=== PATIENT | female | born 1980 | race Caucasian/White ===

== ENCOUNTER 2016-11-21 10:51 | Emergency (ER) | payer OTHER ==
--- NOTE | 2016-11-21 14:41 | DIAGNOSTIC IMAGING REPORT ---
PROCEDURE: CT ABD/PELVIS WITH CONTRAST CLINICAL INDICATION: ABDOMINAL PAIN, initial encounter TECHNIQUE: 75 ml of Isovue 300 were injected intravenously and axial images were obtained of the entire abdomen and pelvis with sagittal and coronal reformations. COMPARISON: None. FINDINGS: ABDOMEN: Lung bases are clear. Heart size is normal. Mild stranding around the uncinate process of the pancreas. Liver, spleen, adrenal glands and right kidney are normal. Partial left nephrectomy. Normal abdominal aorta. Nonspecific bowel gas pattern. PELVIS: Status post appendectomy. Bilateral ovarian cysts, largest on the right measures 2.3 cm. Uterus and bladder are unremarkable. No inflammatory process or free fluid. Mild to moderate degenerative changes of the spine. IMPRESSION: 1. Stranding around the uncinate process of the pancreas which may represent pancreatitis. Correlate with lipase 2. Partial left nephrectomy and appendectomy 3. Bilateral ovarian cysts 4. Results discussed with Dr. Wallace All CT scans at this facility use dose modulation, iterative reconstruction, and/or weight-based dosing when appropriate to reduce radiation dose to as low as reasonably achievable.
--- NOTE | 2016-11-21 16:06 | ED CLINICAL REPORT ---
Clinical Report - Physicians/Mid Levels [facility] [address] [place] [address] 11/21/2016 10:54 Patient: KURTIS GOMEZ Time Seen: 12:03 Nov 21 2016. Arrived- By private vehicle. Historian- patient. Note: (Kidney cancer 2011.). CPT: ER phys charges level 4 (#[id number]). HISTORY OF PRESENT ILLNESS Chief Complaint: Back, abdominal and pelvic pain. ( Arrived by private vehicle. Historian: patient. Primary physician (Dr. Myers). ( Pt states been having lower back right and left side pain for the past two weeks, suspected that is her "kidney again" Pt states having had CA on left kidney back in 2011 had surgery for it. Complaints of n/v chills (lower pain) 10/10, here for evaluation). Describes the quality as sharp. Relates location as in the right and left side of the back and pelvic area. Notes pain level as 10/10 on arrival. ( Pt stats started 2 weeks ago, has an appt with urologist this coming Friday). She has had fever, nausea, abdominal pain and pain and nausea. She has had vomiting and diarrhea. She has had vomiting (yesterday). The vomiting has occurred several times. She has had diarrhea (yesterday). This has occurred twice. No difficulty with urination. No bloody stools or vaginal bleeding or discharge. Last oral intake by patient was breakfast this morning. No radiation.). At its maximum, severity described as moderate. When seen in the E.D., severity described as moderate. Modifying factors- worsened by movement. Relieved by rest. Is still present. The patient has had fatigue. Similar symptoms previously: None. Recent medical care: Not recently seen/assessed. REVIEW OF SYSTEMS No fever, sore throat, sinus drainage, cough or difficulty breathing. No chest pain, nausea, vomiting, diarrhea or black stools. No bloody stools, chills, difficulty with urination, abnormal bleeding or skin rash. No calf pain, headache or blackouts. The patient has had abdominal pain and back pain. Not as she has obstained for months. All systems otherwise negative, except as recorded above. PAST HISTORY Migraine Headache. Cancer. Back pain ADDITIONAL SURGERIES: Appendectomy. Partial kidney removed (Left). SOCIAL HISTORY Smoker- current status unknown (vapor). Occasional alcohol use. ADDITIONAL NOTES The nursing notes have been reviewed. PHYSICAL EXAM Vital Signs: 11/21/2016 11:13 BP: 121/64. HR: 86. RR: 15. O2 saturation: 98%. Temp: 98 F. Pain level now: 08/05. Appearance: Alert. Patient in mild distress. Eyes: Pupils equal, round and reactive to light. Eyes normal inspection. ENT: Ears normal. Nose normal. Pharynx normal. Neck: Normal inspection. Neck supple. CVS: Normal heart rate and rhythm. Heart sounds normal. Pulses normal. Respiratory: No respiratory distress. Breath sounds normal. Chest nontender. Abdomen: Soft. Mild tenderness in the right and left side of the abdomen and suprapubic area. Bowel sounds normal. No mass. Back: Normal inspection. No CVA tenderness. Skin: Skin warm. Normal skin color. No rash. Extremities: Extremities exhibit normal ROM. No lower extremity edema. Neuro: Oriented X 3. No motor deficit. No sensory deficit. LABS, X-RAYS, AND EKG Abdominal CT: Normal liver, spleen, pancreas and kidneys. An ovarian cyst is present. Bladder normal. Appendix normal. No mass. No free fluid. No bony lesion. No diverticulitis. prior nephrectomy noted. Abdominal CT performed with IV contrast. The study was independently viewed by me, interpreted by the radiologist and discussed with the radiologist. Laboratory Tests: UA-Culture if indicated: (ALEXEY: 11/21/2016 11:15) ( MsgRcvd 11/21/2016 12:38) Final results Test Result Flag Units (Reference) URINE COLOR YELLOW URINE APPEARANCE CLEAR URINE GLUCOSE NEGATIVE (NEGATIVE) URINE BILIRUBIN NEGATIVE (NEGATIVE) URINE KETONE NEGATIVE (NEGATIVE) URINE SPECIFIC GRAVITY <= 1.005 L (1.010-1.030) URINE PH 6.0 (5.0-8.0) URINE PROTEIN NEGATIVE (NEGATIVE) URINE UROBILINOGEN 0.2 EU/dL (0.2-1.0) URINE NITRITE NEGATIVE (NEGATIVE) URINE BLOOD NEGATIVE (NEGATIVE) URINE LEUK ESTERASE NEGATIVE (NEGATIVE) URINE RBC NONE SEEN rbc/hpf (0-1) URINE WBC 0-1 wbc/hpf (0-1) URINE EPITHELIAL CELLS 0-1 EPI/hpf (0-5) URINE BACTERIA TRACE (<1+) (NONE SEEN) URINE COMMENT CULT NOT INDICATED URINE CULTURES ARE SET-UP BASED ON THE FOLLOWING CRITERIA:POSITIVE NITRITEPOSITIVE LEUKOCYTE ESTERASEGREATER THAN 10 WHITE BLOOD CELLSMODERATE (2+) OR GREATER BACTERIA CBC w Diff: (ALEXEY: 11/21/2016 12:55) ( [facility] [place] 11/21/2016 13:02) Final results Test Result Flag Units (Reference) WHITE BLOOD COUNT 7.1 K/uL (4.5-11.5) RED BLOOD COUNT 4.78 M/uL (4.00-5.20) HEMOGLOBIN 11.9 L gm/dL (12.0-16.0) HEMATOCRIT 36.5 % (36.0-46.0) MEAN CELL VOLUME 76 L fL (80-100) MEAN CORPUSCULAR HGB 25 L pg (26-34) MEAN CORPUSCULAR HGB CONC 33 g/dL (31-37) RED CELL DISTRIBUTION WIDTH 15.3 H % (11.6-14.8) PLATELET COUNT 281 K/uL (150-400) NEUTROPHIL % 72.5 % (50-75) LYMPH % 19.5 L % (25-40) MONO % 6.8 % (3-14) EOSINOPHIL % 0.8 % (0-4) BASOPHIL % 0.4 % (0-2) CMP: (ALEXEY: 11/21/2016 12:55) ( [facility] [place] 11/21/2016 13:31) Final results Test Result Flag Units (Reference) GLUCOSE 92 mg/dL (70-110) BUN 11 mg/dL (7-18) CREATININE 0.6 mg/dL (0.6-1.3) Estimated GFR >60 mL/min Estimated GFR- >60 mL/min Note: Persistent reduction over 3 months in eGFR<60 mL/min/1.73 m2 defines CKD. Patients with eGFR values>=60 mL/min/1.73 m2 may also have CKD if evidence ofpersistent proteinuria. Additional information may be foundat [email or web address].org. SODIUM 141 mmol/L (136-145) POTASSIUM 3.7 mmol/L (3.5-5.1) CHLORIDE 105 mmol/L (98-107) CARBON DIOXIDE 26 mmol/L (21-32) CALCIUM 8.7 mg/dL (8.5-10.1) TOTAL PROTEIN 7.1 g/dL (6.4-8.2) ALBUMIN 3.7 g/dL (3.3-5.0) BILIRUBIN, TOTAL 0.5 mg/dL (0.0-1.0) ALKALINE PHOSPHATASE 69 U/L (46-116) AST (SGOT) 15 U/L (15-37) ALT (SGPT) 25 U/L (12-78) LIPASE 99 U/L (73-393) AMYLASE 33 U/L (25-115) . PROGRESS AND PROCEDURES Course of Care: Pt has not had a follow up CT for cancer in atleast 2 years according to patient. 15:45 11/21/16. No laboratory or x-ray evidence of emergent condition. Patient will be referred to her PCP for further workup. She does have an ovarian cyst on CAT scan and may have pain and that's radicular from her back. She does have prior history of back pain. Patient/family counseled. Disposition: Discharged. Condition: stable. CLINICAL IMPRESSION Back pain Abdominal pain Ovarian cyst on the right. Vomiting. INSTRUCTIONS Prescription Medications: Hydrocodone/APAP 5mg/325mg: take 1 to 2 orally every 6 hours as needed for pain. Dispense fifteen (15). No refills. Zofran (orally disintegrating tablets) 4 mg: take 1 orally every 6 hours as needed for nausea. Dispense ten (10). Substitution is permissible. OTC Medications: Motrin (available over the counter): take according to label instructions. Follow-up: Follow up with your doctor in one week. Call for an appointment. Understanding of the discharge instructions verbalized by patient. (Electronically signed by Jeffry Wallace MD 11/25/2016 0:56)
--- NOTE | 2016-11-21 16:06 | ED NURSING NOTES ---
Clinical Report - [facility] [address] [place] [address] 11/21/2016 10:54 Patient: KURTIS GOMEZ TRIAGE Triage time 1115 AM. Acuity: LEVEL 3. Chief Complaint: ABDOMINAL PAIN. Alert. No acute distress. BRAYDON COMA SCORE: Novinger Coma Scale: 15- eyes open spontaneously (4); best verbal response- oriented x 4 (5); best motor response- obeys commands (6). --11:29 Kaitlin Buchanan R.N. 11:13 11/21/16. BP: 121/64. HR: 86. RR: 15. O2 saturation: 98% on room air. Temp: 98 F (oral). Pain level now: 10/10. --11:29 Kaitlin Buchanan R.N. Weight: 121.1 kg stated. Height/Length: 64 inches Per Patient. BMI: 45.9. --11:17 Kaitlin Buchanan R.N. Medications None. --11:28 Kaitlin Buchanan R.N. Allergies Wellbutrin. --11:28 Kaitlin Buchanan R.N. Latex. --11:28 Kaitlin Buchanan R.N. Medication/allergy information source: the patient. --11:29 Kaitlin Buchanan R.N. History Arrived by private vehicle. Historian: patient. Primary physician (Dr. Myers). ( Pt states been having lower back right and left side pain for the past two weeks, suspected that is her "kidney again" Pt states having had CA on left kidney back in 2012 had surgery for it. Complaints of n/v chills (lower pain) 10/10, here for evaluation). Describes the quality as sharp. Relates location as in the right and left side of the back and pelvic area. Notes pain level as 10/10 on arrival. ( Pt stats started 2 weeks ago, has an appt with urologist this coming Friday). She has had fever, nausea, abdominal pain and pain and nausea. She has had vomiting and diarrhea. She has had vomiting (yesterday). The vomiting has occurred several times. She has had diarrhea (yesterday). This has occurred twice. No difficulty with urination. No bloody stools or vaginal bleeding or discharge. Last oral intake by patient was breakfast this morning. No radiation. Treatment JTAC: Took ibuprofen. (around 10 am). PAST MEDICAL HX: Immunizations: up-to-date. Last normal menstrual period- Oct 31. No contraception. Not sexually active. SOCIAL HX: Light tobacco smoker (electronic cigarrettes). Occasional alcohol use. No recent travel. She has had contact with a sick coworker with confirmed "flu". No infectious disease exposure. ABUSE ASSESSMENT: No report of abuse. SELF HARM ASSESSMENT: A self harm assessment was performed. The patient answered "no" to the question "Do you have thoughts of harming or killing yourself?" and "Have you recently had thoughts about harming or killing others?". FALL RISK ASSESSMENT: Fall risk assessment completed. No fall risk identified. NUTRITIONAL RISK ASSESSMENT: The nutritional risk assessment revealed no deficiencies. FUNCTIONAL ASSESSMENT: Functional assessment: no impairments noted. LEARNING NEEDS ASSESSMENT: The learning needs assessment revealed no barriers. SKIN INTEGRITY ASSESSMENT: Skin integrity risk assessment completed. No skin integrity risk identified. --11:29 Kaitlin Buchanan R.N. PROBLEMS: Migraine Headache. Cancer. --11:29 Kaitlin Buchanan R.N. ADDITIONAL SURGERIES: Appendectomy. Partial kidney removed (Left). --11:29 Kaitlin Buchanan R.N. Interventions ID band on patient. --11:29 Kaitlin Buchanan R.N. PHYSICAL ASSESSMENT GENERAL / NEURO / PSYCH: Alert. Oriented X 4. Appears in no acute distress. Appears in pain. HEENT: Mucous membranes are pink. RESPIRATORY: Respirations not labored. Breath sounds within normal limits. CVS: Capillary refill less than 2 seconds. GI / : Obesity. Abdomen soft. Bowel sounds within normal limits. SKIN: Skin is warm and dry. --11:31 Kaitlin Buchanan R.N. NURSING PROGRESS NOTES The initial plan of care for this patient has been created This plan of care was discussed with the patient. Patient gowned. Warming measures: blanket applied. Reassurance given. Two patient identifiers checked. Call light placed in reach. Side rails up x 1. Bed placed in lowest position. Brakes of bed on. Brakes of chair on. --11:32 Kaitlin Buchanan R.N. 12:28 11/21/2016 Site #1 started via IV in the left antecubital space with an 20g angiocath; one attempt. --12:28 Kaitlin Buchanan R.N. Reassurance given. Patient ID band checked for patient name, birthdate and medical record number: patient confirmed. Instructions provided to collect clean catch urine and patient verbalized understanding. Clean catch urine collected with return of yellow-colored clear urine; sample sent to lab for urinalysis. Specimen labeled in the presence of the patient. Patient identifiers checked. Call light placed in reach. Side rails up x 1. Brakes of bed on. Brakes of chair on. --12:28 Kaitlin Buchanan R.N. 12:57 11/21/2016 Started bag #1 1000 mL IV Fluids IV NS (Saline); bolus of 250 mL over 30 minute(s) via site #1 via dial-a-flow. Allergies verified and confirmed 5 rights. IV patency established. IV site checked: no pain, redness, or swelling. IV flushed thoroughly pre- and post-medication administration. --12:57 Kaitlin Buchanan R.N. 13:30 11/21/16. BP: 109/63 taken on the right arm, via an automated monitor, while lying. HR: 70. RR: 16. O2 saturation: 100% on room air. Temp: 98.4 F (oral). Pain level now: 08/05. --13:52 Kaitlin Buchanan R.N. Reassurance given. GI / : The patient reports nausea. The patient reports abdominal pain. The patient reports diarrhea. Two patient identifiers checked. Call light placed in reach. Side rails up x 1. Bed placed in lowest position. Brakes of bed on. Brakes of chair on. --13:52 Kaitlin Buchanan R.N. 14:01 11/21/2016 Zofran (Ondansetron HCl) IVP 4 mg given over 2 minute(s) via site #1. Allergies verified and confirmed 5 rights. IV patency established. IV site checked: no pain, redness, or swelling. IV flushed thoroughly pre- and post-medication administration. IVP given by RN. --14:03 Kaitlin Buchanan R.N. 14:03 11/21/2016 Dilaudid (HYDROmorphone HCl PF) IVP 0.5 mg given over 1 minute(s) via site #1. Allergies verified, confirmed 5 rights and sedative warning given to the patient. IV patency established. IV site checked: no pain, redness, or swelling. IV flushed thoroughly pre- and post-medication administration. IVP given by RN. --14:03 Kaitlin Buchanan R.N. Patient transported to CT by stretcher. --14:04 Kaitlin Buchanan R.N. 15:29 11/21/2016 Zofran IVP Response: no adverse reaction symptoms have improved. --15:29 Kaitlin Buchanan R.N. 15:38 11/21/16. BP: 119/88. HR: 72. RR: 16. O2 saturation: 100%. Temp: 98.7 F (oral). Pain level now: 06/05. --15:39 Kaitlin Buchanan R.N. Reassurance given. Reassessment after fluids administered and medication administered. She is calm and has had no adverse reaction. Overall patient status is the same- she states feels the same. GI / : The patient reports nausea. The patient reports abdominal pain. Two patient identifiers checked. Call light placed in reach. Side rails up x 2. Bed placed in lowest position. Brakes of bed on. Brakes of chair on. Patient waiting for CT results. --15:39 Kaitlin Buchanan R.N. 15:44 11/21/2016 Zofran (Ondansetron HCl) IVP 4 mg given over 2 minute(s) via site #1. Allergies verified and confirmed 5 rights. IV patency established. IV site checked: no pain, redness, or swelling. IV flushed thoroughly pre- and post-medication administration. IVP given by RN. --15:44 Kaitlin Buchanan R.N. 15:44 11/21/2016 Dilaudid IVP Response: no adverse reaction symptoms are the same. The patient feels the same. --15:44 Kaitlin Buchanan R.N. 16:35 11/21/2016 IV Fluids IV NS Discontinued: bag #1 infused upon discharge. Total amount infused: 1000 mL. IV patency established. IV site checked: no pain, redness, or swelling. IV flushed thoroughly. --16:50 Kaitlin Buchanan R.N. 16:39 11/21/2016 Zofran IVP Response: no adverse reaction. --16:49 Kaitlin Buchanan R.N. 16:48 11/21/2016 Site #1 removed upon discharge. Catheter intact. Manual pressure applied. --16:50 Kaitlin Buchanan R.N. DISPOSITION / DISCHARGE Departure time: 1650 PM. Condition at departure: improved and stable. The goals identified in the patient's plan of care were met. No learning barriers present. Reviewed medication(s) side effects, precautions, dosing and course information. Prescription(s) given to the patient. Reviewed need for increased fluid intake. Activity restrictions (rest) reviewed. Patient verbalized understanding. Written instructions provided in Indonesian. The patient was discharged by the physician. She was discharged home and accompanied by spouse. She left the Emergency Department ambulatory and via private vehicle. Spouse driving. FALL RISK ASSESSMENT: Fall risk assessment completed. No fall risk identified. BRAYDON COMA SCORE: Braydon Coma Scale: 15- eyes open spontaneously (4); best verbal response- oriented x 4 (5); best motor response- obeys commands (6). --16:52 Kaitlin Buchanan R.N. 16:40 11/21/16. BP: 120/85 (large adult cuff) taken on the left arm, via an automated monitor, while lying. HR: 65. RR: 18. O2 saturation: 100% on room air. Temp: 97.7 F (oral). Pain level now: 03/05. --16:52 Kaitlin Buchanan R.N. Locked/Released at 11/26/2016 0:34 by Kaitlin Buchanan R.N.
--- NOTE | 2016-11-21 16:06 | ED ORDER SUMMARY ---
..... Patient: KURTIS GOMEZ OrderSheet [facility] VisitID: [id number] [address] [place] [address] 36y, F Registration Date/Time: 11/21/2016 ORDER SHEET Weight: 121.1 kg (stated) Allergies: Wellbutrin, Latex GENERAL ORDERS: CT Abd/Pel w Cont (No) (pending) Urgent (12:11/21/2016 Jen HYDE) (Ack 12:15 TBergley) (14:04 EHassan R.N.) CBC w Diff Urgent (12:11/21/2016 Jen HYDE) (Ack 12:15 TBergley) (12:53 LMuller) CMP Urgent (12:11/21/2016 Jen HYDE) (Ack 12:15 TBergley) (12:53 LMuller) Amylase Urgent (12:11/21/2016 Jen HYDE) (Ack 12:15 TBergley) (12:53 LMuller) Lipase Urgent (12:11/21/2016 Jen HYDE) (Ack 12:15 TBergley) (12:53 LMuller) UA-Culture if indicated Urgent (12:11/21/2016 Jen HYDE) (Ack 12:15 TBergley) (12:27 EHassan R.N.) MEDICATION ORDERS: IV FLUIDS: IV NS : initial bolus 250 mL (1000 mL/hr), then 150 mL/hr for 4h (NOW); Routine (12:11/21/2016 Jen HYDE) (12:57 EHassan R.N.) Dilaudid IV 0.5 mg (NOW) (13:53 11/21/2016 Jen HYDE) (14:03 EHassahermes R.N.) Zofran IV 4 mg (NOW) (13:53 11/21/2016 Jen HYDE) (14:03 EHassahermes R.N.) Zofran IV 4 mg (NOW) (15:43 11/21/2016 Jen HYDE) (15:44 EHassan R.N.) ORDER SHEET NOTES: [Electronically signed by Jeffry Wallace MD (00:56 11/25/2016)] [Electronically signed by Kaitlin Buchanan R.N. (00:34 11/26/2016)] [Electronically locked/signed by Kaitlin Buchanan R.N. (00:34 11/26/2016)]
--- NOTE | 2016-11-21 16:06 | ED ORDER SUMMARY ---
..... Patient: KURTIS GOMEZ OrderSheet [facility] VisitID: [id number] [address] [place] [address] 36y, F Registration Date/Time: 11/21/2016 ORDER SHEET Weight: 121.1 kg (stated) Allergies: Wellbutrin, Latex GENERAL ORDERS: CT Abd/Pel w Cont (No) (pending) Urgent (12:11/21/2016 Jen HYDE) (Ack 12:15 TBergley) (14:04 EHassan R.N.) CBC w Diff Urgent (12:11/21/2016 Jen HYDE) (Ack 12:15 TBergley) (12:53 LMuller) CMP Urgent (12:11/21/2016 Jen HYED) (Ack 12:15 TBergley) (12:53 LMuller) Amylase Urgent (12:11/21/2016 Jen HYDE) (Ack 12:15 TBergley) (12:53 LMuller) Lipase Urgent (12:11/21/2016 Jen HYDE) (Ack 12:15 TBergley) (12:53 LMuller) UA-Culture if indicated Urgent (12:11/21/2016 Jen HYDE) (Ack 12:15 TBergley) (12:27 EHassan R.N.) MEDICATION ORDERS: IV FLUIDS: IV NS : initial bolus 250 mL (1000 mL/hr), then 150 mL/hr for 4h (NOW); Routine (12:11/21/2016 Jen HYDE) (12:57 EHassan R.N.) Dilaudid IV 0.5 mg (NOW) (13:53 11/21/2016 Jen HYDE) (14:03 EHassahermes R.N.) Zofran IV 4 mg (NOW) (13:53 11/21/2016 Jen HYDE) (14:03 EHassahermes R.N.) Zofran IV 4 mg (NOW) (15:43 11/21/2016 Jen HYDE) (15:44 EHassan R.N.) ORDER SHEET NOTES: [Electronically signed by Jeffry Wallace MD (00:56 11/25/2016)] [Electronically signed by Kaitlin Buchanan R.N. (00:34 11/26/2016)] [Electronically locked/signed by Kaitlin uBchanan R.N. (00:34 11/26/2016)]
--- NOTE | 2016-11-26 00:35 | ED DISCHARGE INSTRUCTIONS ---
Patient: KURTIS GOMEZ General Instructions [facility] VisitID: [id number] [address] [place] [address] 36y, F Registration Date/Time: 11/21/2016 Back pain Abdominal pain Ovarian cyst on the right. Vomiting. INSTRUCTIONS Prescription Medications: Hydrocodone/APAP 5mg/325mg: take 1 to 2 orally every 6 hours as needed for pain. Dispense fifteen (15). No refills. Zofran (orally disintegrating tablets) 4 mg: take 1 orally every 6 hours as needed for nausea. Dispense ten (10). Substitution is permissible. OTC Medications: Motrin (available over the counter): take according to label instructions. Follow-up: Follow up with your doctor in one week. Call for an appointment. Understanding of the discharge instructions verbalized by patient. ADDITIONAL INFORMATION Ondansetron Oral disintegrating tablet What is this medicine? ONDANSETRON (on LEXI se yung) is used to treat nausea and vomiting caused by chemotherapy. It is also used to prevent or treat nausea and vomiting after surgery. How should I use this medicine? These tablets are made to dissolve in the mouth. Do not try to push the tablet through the foil backing. With dry hands, peel away the foil backing and gently remove the tablet. Place the tablet in the mouth and allow it to dissolve, then swallow. While you may take these tablets with water, it is not necessary to do so. Talk to your fruit loader machine operator regarding the use of this medicine in children. Special care may be needed. What side effects may I notice from receiving this medicine? Side effects that you should report to your doctor or health before and after school daycare worker as soon as possible: allergic reactions like skin rash, itching or hives, swelling of the face, lips, or tongue breathing problems dizziness fast or irregular heartbeat feeling faint or lightheaded, falls fever and chills swelling of the hands and feet tightness in the chest Side effects that usually do not require medical attention (report to your doctor or health before and after school daycare worker if they continue or are bothersome): constipation or diarrhea headache What may interact with this medicine? Do not take this medicine with any of the following medications: -apomorphine -cisapride -dofetilide -dronedarone -pimozide -thioridazine -ziprasidone This medicine may also interact with the following medications: -carbamazepine -phenytoin -rifampicin -tramadol -other medicines that prolong the QT interval (cause an abnormal heart rhythm) What if I miss a dose? If you miss a dose, take it as soon as you can. If it is almost time for your next dose, take only that dose. Do not take double or extra doses. Where should I keep my medicine? Keep out of the reach of children. Store between 2 and 30 degrees C (36 and 86 degrees F). Throw away any unused medicine after the expiration date. What should I tell my health care provider before I take this medicine? They need to know if you have any of these conditions: heart disease history of irregular heartbeat liver disease low levels of magnesium or potassium in the blood an unusual or allergic reaction to ondansetron, granisetron, other medicines, foods, dyes, or preservatives or trying to get breast-feeding What should I watch for while using this medicine? Check with your doctor or health before and after school daycare worker as soon as you can if you have any sign of an allergic reaction. You have been given the following additional information: Ondansetron Oral disintegrating tablet (Electronically signed by Jeffry Wallace MD 11/25/2016 0:56)
--- NOTE | 2016-11-26 00:35 | ED DISCHARGE INSTRUCTIONS ---
Patient: KURTIS GOMEZ General Instructions [facility] VisitID: [id number] [address] [place] [address] 36y, F Registration Date/Time: 11/21/2016 Back pain Abdominal pain Ovarian cyst on the right. Vomiting. INSTRUCTIONS Prescription Medications: Hydrocodone/APAP 5mg/325mg: take 1 to 2 orally every 6 hours as needed for pain. Dispense fifteen (15). No refills. Zofran (orally disintegrating tablets) 4 mg: take 1 orally every 6 hours as needed for nausea. Dispense ten (10). Substitution is permissible. OTC Medications: Motrin (available over the counter): take according to label instructions. Follow-up: Follow up with your doctor in one week. Call for an appointment. Understanding of the discharge instructions verbalized by patient. ADDITIONAL INFORMATION Ondansetron Oral disintegrating tablet What is this medicine? ONDANSETRON (on LEXI se yung) is used to treat nausea and vomiting caused by chemotherapy. It is also used to prevent or treat nausea and vomiting after surgery. How should I use this medicine? These tablets are made to dissolve in the mouth. Do not try to push the tablet through the foil backing. With dry hands, peel away the foil backing and gently remove the tablet. Place the tablet in the mouth and allow it to dissolve, then swallow. While you may take these tablets with water, it is not necessary to do so. Talk to your coal dumping equipment operator regarding the use of this medicine in children. Special care may be needed. What side effects may I notice from receiving this medicine? Side effects that you should report to your doctor or health daycare manager as soon as possible: allergic reactions like skin rash, itching or hives, swelling of the face, lips, or tongue breathing problems dizziness fast or irregular heartbeat feeling faint or lightheaded, falls fever and chills swelling of the hands and feet tightness in the chest Side effects that usually do not require medical attention (report to your doctor or health daycare manager if they continue or are bothersome): constipation or diarrhea headache What may interact with this medicine? Do not take this medicine with any of the following medications: -apomorphine -cisapride -dofetilide -dronedarone -pimozide -thioridazine -ziprasidone This medicine may also interact with the following medications: -carbamazepine -phenytoin -rifampicin -tramadol -other medicines that prolong the QT interval (cause an abnormal heart rhythm) What if I miss a dose? If you miss a dose, take it as soon as you can. If it is almost time for your next dose, take only that dose. Do not take double or extra doses. Where should I keep my medicine? Keep out of the reach of children. Store between 2 and 30 degrees C (36 and 86 degrees F). Throw away any unused medicine after the expiration date. What should I tell my health care provider before I take this medicine? They need to know if you have any of these conditions: heart disease history of irregular heartbeat liver disease low levels of magnesium or potassium in the blood an unusual or allergic reaction to ondansetron, granisetron, other medicines, foods, dyes, or preservatives or trying to get breast-feeding What should I watch for while using this medicine? Check with your doctor or health daycare manager as soon as you can if you have any sign of an allergic reaction. You have been given the following additional information: Ondansetron Oral disintegrating tablet (Electronically signed by Jeffry Wallace MD 11/25/2016 0:56)
--- NOTE | 2016-11-26 00:35 | ED MAR SUMMARY ---
..... Medication Administration Record [facility] [address] [place] [address] Patient: KURTIS GOMEZ Visit ID: [id number] 36y, F Weight: 121.1 kg Height/Length: 64 in BMI: 45.9 ALLERGIES: Latex, Wellbutrin Start 12:57 11/21/2016 Kaitlin Buchanan R.N., Stop 16:35 11/21/2016 Kaitlin Buchanan R.N. Medication Administered: IV NS (SALINE), Dose: IV Fluids, Bolus: 250 mL over 30 minute(s), Dispensed: 1000 mL bag, Site: #1 left AC. Medication Ordered: IV NS : initial bolus 250 mL (1000 mL/hr), then 150 mL/hr for 4h (NOW); Routine. Given 14:01 11/21/2016 Kaitlin Buchanan R.N. Medication Administered: ZOFRAN [IVP] (ONDANSETRON HCL), Dose: 4 mg IVP over 2 minute(s), Site: #1 left AC. Medication Ordered: Zofran IV 4 mg (NOW). Given 14:03 11/21/2016 Kaitlin Buchanan R.N. Medication Administered: DILAUDID [IVP] (HYDROMORPHONE HCL PF), Dose: 0.5 mg IVP over 1 minute(s), Site: #1 left AC. Medication Ordered: Dilaudid IV 0.5 mg (NOW). Given 15:44 11/21/2016 Kaitlin Buchanan R.N. Medication Administered: ZOFRAN [IVP] (ONDANSETRON HCL), Dose: 4 mg IVP over 2 minute(s), Site: #1 left AC. Medication Ordered: Zofran IV 4 mg (NOW).
--- NOTE | 2016-11-26 00:35 | ED MED RECONCILIATION SUMMARY ---
Patient: KURTIS GOMEZ Medication Reconciliation Report [facility] VisitID: [id number] [address] [place] [address] 36y, F Registration Date/Time: 11/21/2016 Weight: 121.1 kg Height/Length: 64 in. BMI: 45.9 ALLERGIES: Latex, Wellbutrin The patient's Home Medications are listed below: NONE. The source(s) of the original Home Medication information: patient The following Medications were given to the patient in the Emergency Department: IV NS IV Fluids bolus 250 mL over 30 minute(s), administered: 11/21/2016 12:57:00 PM Dilaudid [IVP] IVP 0.5 mg, administered: 11/21/2016 2:03:00 PM Zofran [IVP] IVP 4 mg, administered: 11/21/2016 2:01:00 PM Zofran [IVP] IVP 4 mg, administered: 11/21/2016 3:44:00 PM The following Medications were prescribed to the patient: Motrin (available over the counter): take according to label instructions. -- Jeffry Wallace MD Hydrocodone/APAP 5mg/325mg: take 1 to 2 orally every 6 hours as needed for pain. Dispense fifteen (15). No refills. -- Jeffry Wallace MD Zofran (orally disintegrating tablets) 4 mg: take 1 orally every 6 hours as needed for nausea. Dispense ten (10). Substitution is permissible. -- Jeffry Wallace MD
--- NOTE | 2016-11-26 00:35 | ED MAR SUMMARY ---
..... Medication Administration Record [facility] [address] [place] [address] Patient: KURTIS GOMEZ Visit ID: [id number] 36y, F Weight: 121.1 kg Height/Length: 64 in BMI: 45.9 ALLERGIES: Latex, Wellbutrin Start 12:57 11/21/2016 Kaitlin Buchanan R.N., Stop 16:35 11/21/2016 Kaitlin Buchanan R.N. Medication Administered: IV NS (SALINE), Dose: IV Fluids, Bolus: 250 mL over 30 minute(s), Dispensed: 1000 mL bag, Site: #1 left AC. Medication Ordered: IV NS : initial bolus 250 mL (1000 mL/hr), then 150 mL/hr for 4h (NOW); Routine. Given 14:01 11/21/2016 Kaitlin Buchanan R.N. Medication Administered: ZOFRAN [IVP] (ONDANSETRON HCL), Dose: 4 mg IVP over 2 minute(s), Site: #1 left AC. Medication Ordered: Zofran IV 4 mg (NOW). Given 14:03 11/21/2016 Kaitlin Buchanan R.N. Medication Administered: DILAUDID [IVP] (HYDROMORPHONE HCL PF), Dose: 0.5 mg IVP over 1 minute(s), Site: #1 left AC. Medication Ordered: Dilaudid IV 0.5 mg (NOW). Given 15:44 11/21/2016 Kaitlin Buchanan R.N. Medication Administered: ZOFRAN [IVP] (ONDANSETRON HCL), Dose: 4 mg IVP over 2 minute(s), Site: #1 left AC. Medication Ordered: Zofran IV 4 mg (NOW).
--- NOTE | 2016-11-26 00:35 | ED MED RECONCILIATION SUMMARY ---
Patient: KURTIS GOMEZ Medication Reconciliation Report [facility] VisitID: [id number] [address] [place] [address] 36y, F Registration Date/Time: 11/21/2016 Weight: 121.1 kg Height/Length: 64 in. BMI: 45.9 ALLERGIES: Latex, Wellbutrin The patient's Home Medications are listed below: NONE. The source(s) of the original Home Medication information: patient The following Medications were given to the patient in the Emergency Department: IV NS IV Fluids bolus 250 mL over 30 minute(s), administered: 11/21/2016 12:57:00 PM Dilaudid [IVP] IVP 0.5 mg, administered: 11/21/2016 2:03:00 PM Zofran [IVP] IVP 4 mg, administered: 11/21/2016 2:01:00 PM Zofran [IVP] IVP 4 mg, administered: 11/21/2016 3:44:00 PM The following Medications were prescribed to the patient: Motrin (available over the counter): take according to label instructions. -- Jeffry Wallace MD Hydrocodone/APAP 5mg/325mg: take 1 to 2 orally every 6 hours as needed for pain. Dispense fifteen (15). No refills. -- Jeffry Wallace MD Zofran (orally disintegrating tablets) 4 mg: take 1 orally every 6 hours as needed for nausea. Dispense ten (10). Substitution is permissible. -- Jeffry Wallace MD
== END 2016-11-21 16:50 | disposition home or self-care (01) ==
LOC: ED SRH 10:51
DX: M54.9 Dorsalgia, unspecified (principal); R10.9 Unspecified abdominal pain; N83.201 Unspecified ovarian cyst, right side; R11.10 Vomiting, unspecified; F17.210 Nicotine dependence, cigarettes, uncomplicated; Z88.8 Allergy status to other drugs, medicaments and biological substances
CPT/HCPCS: 90004; 90074; 90100; 92235; 92530; 95059